=== PATIENT | female | born 1995 | race Caucasian/White ===

== ENCOUNTER 2016-12-21 15:45 | Inpatient (IN) | payer MEDICAID ==
[~2016-12-21] VITALS: Ht 160 cm; Wt 69.4 kg
[2016-12-21] MEDS ORDERED: BUTORPHANOL TARTRATE 2 MG/ML VIAL IV PRN (18:45)
[2016-12-21] MEDS ORDERED: METHYLERGONOVINE MALEATE 0.2 MG/ML IM PRN (18:45)
[2016-12-21] MEDS ORDERED: LIDOCAINE HCL 1% 20ML VIAL (Pyxis) INJ INFIL SCH (18:45)
[2016-12-21] MEDS ORDERED: NALOXONE HCL 0.4 MG/ML 1ML VIAL IM PRN (18:45)
[2016-12-21] MEDS: LACTATED RINGERS 1,000 ML IV SCH ×2 (18:59→20:24)
[2016-12-21 19:13] LABS: BASOPHILS % 0.3 % (0.0-2.0); EOSINOPHILS % 0.3 % (0.0-5.0); HEMATOCRIT. 29.8 % (36.0-48.0); HEMOGLOBIN. 9.8 g/dL (12.0-16.0); LYMPHOCYTES % 17.2 % (20.0-50.0); MEAN CORPUSCULAR VOLUME 72.8 fL (81.0-99.0); MONOCYTES % 4.5 % (2.0-8.0); NEUTROPHILS % 77.7 % (40.0-76.0); PLATELET 166 x1000/uL (130-400); RED CELL DISTRIBUTION WIDTH 18.2 % (11.6-14.6)
[2016-12-21 19:15] LABS: CLARITY URINE CLOUDY (CLEAR); COLOR URINE YELLOW (YELLOW); GLUCOSE URINE NEGATIVE (NEGATIVE); KETONES URINE NEGATIVE (NEGATIVE); LEUKOCYTE ESTERASE URINE 2+ (NEGATIVE); NITRITE URINE NEGATIVE (NEGATIVE); OCCULT BLOOD URINE 2+ (NEGATIVE); PH URINE 6.5 (4.5-8.0); PROTEIN URINE NEGATIVE (NEGATIVE); SPECIFIC GRAVITY URINE 1.023 (1.005-1.030)
[2016-12-21 19:21] LABS: INR 0.9; PARTIAL THROMBOPLASTIN TIME 24.6 sec (23.4-31.0); PROTHROMBIN TIME 9.6 sec (9.4-11.6)
[2016-12-21 19:25] LABS: *AMPHETAMINES SCREEN URINE NEGATIVE (NEGATIVE); *BARBITURATES SCREEN URINE NEGATIVE (NEGATIVE); *BENZODIAZEPINES SCREEN URINE NEGATIVE (NEGATIVE); *COCAINE SCREEN URINE NEGATIVE (NEGATIVE); CANNABINOID URINE SCREEN NEGATIVE (NEGATIVE); METHADONE URINE SCREEN NEGATIVE (NEGATIVE); OPIATES URINE SCREEN NEGATIVE (NEGATIVE); PHENCYCLIDINE URINE SCREEN NEGATIVE (NEGATIVE)
[2016-12-21] MEDS ORDERED: PENICILLIN G POTASSIUM 5 MMU in DEXT 5% WATER 100 ML IV SCH (19:30)
[2016-12-21] MEDS ORDERED: FENTANYL CITRATE/PF 50MCG/ML 2ML VIAL ONE (19:47)
[2016-12-21] MEDS ORDERED: BUPIVACAINE HCL/NS/PF EPIDURAL 100 ML EP ONE (19:49)
[2016-12-21] MEDS ORDERED: BUPIVACAINE HCL/PF 0.25% (2.5MG/ML) 10ML ONE (19:49)
[2016-12-21 19:55] LABS: HEPATITIS B SURFACE ANTIGEN NEGATIVE; RUBELLA IGG 125.1 IU/mL (4.99-10)
[2016-12-21] MEDS ORDERED: DIPHENHYDRAMINE 50MG/ML VIAL IM PRN (20:30)
[2016-12-21] MEDS ORDERED: BUPIVACAINE HCL/NS/PF EPIDURAL 100 ML EP SCH (20:30)
[2016-12-21] MEDS ORDERED: ONDANSETRON HCL 4MG/2ML VIAL IV PRN (20:30)
[2016-12-21] MEDS: PENICILLIN G POTASSIUM 2.5 MMU in DEXTROSE 5% WATER 50 ML IV SCH (23:15)
[2016-12-22] MEDS: LACTATED RINGERS 1,000 ML IV SCH (00:58)
[2016-12-22] MEDS: PENICILLIN G POTASSIUM 2.5 MMU in DEXTROSE 5% WATER 50 ML IV SCH ×2 (03:07→07:48)
[2016-12-22] MEDS ORDERED: FENTANYL CITRATE/PF 50MCG/ML 2ML VIAL ONE (04:05)
[2016-12-22] MEDS ORDERED: BUPIVACAINE HCL/NS/PF EPIDURAL 100 ML EP ONE (04:06)
[2016-12-22] MEDS: DEXT 5%/LR + PITOCIN 20UNITS/L 1,000 ML IV SCH ×2 (08:15→09:16)
[2016-12-22] MEDS ORDERED: DEXT 5%/LR + PITOCIN 20UNITS/L 1,000 ML IV SCH (08:32)
[2016-12-22] MEDS ORDERED: LANOLIN OINT 0.25 GM TUBE TOP PRN (08:45)
[2016-12-22] MEDS ORDERED: IBUPROFEN 400MG TABLET PO PRN (08:45)
[2016-12-22] MEDS ORDERED: RHO(D) IMMUNE GLOBULIN 300 MCG/SYR IM PRN (08:45)
[2016-12-22] MEDS ORDERED: METHYLERGONOVINE MALEATE 0.2 MG/ML IM PRN (08:45)
[2016-12-22] MEDS ORDERED: PRENATAL VIT/FE FUMARATE/FA TABLET PO SCH (09:00)
[2016-12-22 10:10] VITALS: BP 115/73
[2016-12-22 10:30] VITALS: BP 121/78
[2016-12-22 11:17] VITALS: BP 101/63
[2016-12-22 15:56] VITALS: BP 110/55
[2016-12-22] MEDS: IBUPROFEN 800MG TABLET PO PRN (18:46)
[2016-12-22 19:30] VITALS: BP 108/72
[2016-12-23] VITALS: BP 105/60
[2016-12-23 04:00] VITALS: BP 100/71
[2016-12-23 06:59] LABS: BASOPHILS % 0.1 % (0.0-2.0); EOSINOPHILS % 0.3 % (0.0-5.0); HEMATOCRIT. 23.7 % (36.0-48.0); HEMOGLOBIN. 7.6 g/dL (12.0-16.0); LYMPHOCYTES % 15.4 % (20.0-50.0); MEAN CORPUSCULAR HEMOGLOBIN 23.9 pg (28.0-32.0); MEAN CORPUSCULAR VOLUME 74.3 fL (81.0-99.0); MEAN PLATELET VOLUME 8.4 fl (7.4-10.4); MONOCYTES % 4.6 % (2.0-8.0); NEUTROPHILS % 79.6 % (40.0-76.0); PLATELET 154 x1000/uL (130-400); RED BLOOD CELL COUNT 3.19 mill/uL (4.2-5.4); RED CELL DISTRIBUTION WIDTH 18.8 % (11.6-14.6)
[2016-12-23 08:15] VITALS: BP 104/72
[2016-12-23 15:53] VITALS: BP 109/70
[2016-12-23] MEDS: IBUPROFEN 800MG TABLET PO PRN (23:17)
[2016-12-24 00:02] VITALS: BP 101/71
[2016-12-24 06:59] LABS: BASOPHILS % 0.3 % (0.0-2.0); EOSINOPHILS % 0.8 % (0.0-5.0); HEMATOCRIT. 21.2 % (36.0-48.0); LYMPHOCYTES % 20.5 % (20.0-50.0); MEAN CORPUSCULAR HEMOGLOBIN 23.9 pg (28.0-32.0); MEAN CORPUSCULAR VOLUME 74.6 fL (81.0-99.0); MEAN PLATELET VOLUME 8.5 fl (7.4-10.4); MONOCYTES % 4.6 % (2.0-8.0); NEUTROPHILS % 73.8 % (40.0-76.0); PLATELET 146 x1000/uL (130-400); RED BLOOD CELL COUNT 2.84 mill/uL (4.2-5.4); RED CELL DISTRIBUTION WIDTH 18.3 % (11.6-14.6)
[2016-12-24 07:11] LABS: HEMOGLOBIN. 6.8 g/dL (12.0-16.0)
[2016-12-24 07:30] VITALS: BP 97/70
== END 2016-12-24 10:40 | disposition home or self-care (01) | DRG 560 ==
LOC: OBSVTOIN 15:45 → L&D 15:45 → 7EST PP/OB 12-22 10:30
PROVIDERS: ADMIT Obstetrics & Gynecology; ATTEND Obstetrics & Gynecology
PROC: 10E0XZZ Delivery of Products of Conception, External Approach (ICD-10-PCS; 2016-12-22)
PROC: 3E0S3CZ (ICD-10-PCS; 2016-12-22)
PROC: 00HU33Z Insertion of Infusion Device into Spinal Canal, Percutaneous Approach (ICD-10-PCS; 2016-12-22)
PROC: 0W8NXZZ Division of Female Perineum, External Approach (ICD-10-PCS; principal; 2016-12-22 15:55)
DX: O99.824 Streptococcus B carrier state complicating childbirth (principal); D64.9 Anemia, unspecified; Z37.0 Single live birth; O99.02 Anemia complicating childbirth; Z3A.39 39 weeks gestation of pregnancy; O70.9 Perineal laceration during delivery, unspecified; O77.0 Labor and delivery complicated by meconium in amniotic fluid
CPT/HCPCS: 36415; 80305; 81001; 85025; 85610; 85730; 86592; 86703; 86762; 86850; 86900; 87340; J0595; J2540; J2590; J3010; J3490; J7060; J7120; A4315

== ENCOUNTER 2018-05-31 23:38 | Inpatient (IN) | payer MEDICAID ==
[~2018-05-31] VITALS: Ht 167.6 cm; Wt 78.0 kg
[2018-06-01] MEDS ORDERED: DEXT 5%/LR + PITOCIN 20UNITS/L 1,000 ML IV SCH ×2 (00:13→01:57)
[2018-06-01] MEDS ORDERED: LACTATED RINGERS 1,000 ML IV SCH (00:13)
[2018-06-01] MEDS ORDERED: LIDOCAINE HCL 1% 20ML VIAL (Pyxis) INJ INFIL SCH (00:15)
[2018-06-01] MEDS ORDERED: NALOXONE HCL 0.4 MG/ML 1ML VIAL IM PRN (00:15)
[2018-06-01] MEDS ORDERED: METHYLERGONOVINE MALEATE 0.2 MG/ML IM PRN (00:15)
[2018-06-01] MEDS ORDERED: CARBOPROST TROMETHAMINE 250 MCG/ML AMPUL IM PRN (00:15)
[2018-06-01] MEDS ORDERED: BUTORPHANOL TARTRATE 2 MG/ML VIAL IV PRN (00:15)
[2018-06-01] MEDS ORDERED: PENICILLIN G POTASSIUM 5 MMU in DEXT 5% WATER 100 ML IV SCH (00:30)
[2018-06-01 01:28] LABS: CLARITY URINE CLOUDY (CLEAR); COLOR URINE YELLOW (YELLOW); EOSINOPHILS % 0.6 % (0.0-5.0); HEMATOCRIT. 31.7 % (36.0-48.0); HEMOGLOBIN. 10.3 g/dL (12.0-16.0); KETONES URINE NEGATIVE (NEGATIVE); LEUKOCYTE ESTERASE URINE 2+ (NEGATIVE); LYMPHOCYTES % 21.9 % (20.0-50.0); MEAN CORPUSCULAR HEMOGLOBIN 23.9 pg (28.0-32.0); MEAN CORPUSCULAR VOLUME 73.2 fL (81.0-99.0); MEAN PLATELET VOLUME 8.7 fl (7.4-10.4); MONOCYTES % 6.8 % (2.0-8.0); NEUTROPHILS % 69.7 % (40.0-76.0); NITRITE URINE NEGATIVE (NEGATIVE); OCCULT BLOOD URINE 1+ (NEGATIVE); PLATELET 217 x1000/uL (130-400); PROTEIN URINE NEGATIVE (NEGATIVE); RED BLOOD CELL COUNT 4.32 mill/uL (4.2-5.4); RED CELL DISTRIBUTION WIDTH 18.4 % (11.6-14.6); SPECIFIC GRAVITY URINE 1.018 (1.005-1.030)
[2018-06-01 01:41] LABS: *AMPHETAMINES SCREEN URINE NEGATIVE (NEGATIVE); *BARBITURATES SCREEN URINE NEGATIVE (NEGATIVE); *BENZODIAZEPINES SCREEN URINE NEGATIVE (NEGATIVE); *COCAINE SCREEN URINE NEGATIVE (NEGATIVE); METHADONE URINE SCREEN NEGATIVE (NEGATIVE)
[2018-06-01 01:42] LABS: CANNABINOID URINE SCREEN NEGATIVE (NEGATIVE); OPIATES URINE SCREEN NEGATIVE (NEGATIVE); PHENCYCLIDINE URINE SCREEN NEGATIVE (NEGATIVE)
[2018-06-01 01:43] LABS: INR 0.9; PARTIAL THROMBOPLASTIN TIME 23.3 sec (23.4-31.0); PROTHROMBIN TIME 9.3 sec (9.1-11.1)
[2018-06-01] MEDS ORDERED: LANOLIN OINT 0.25 GM TUBE TOP PRN (02:00)
[2018-06-01] MEDS ORDERED: IBUPROFEN 400MG TABLET PO PRN (02:00)
[2018-06-01] MEDS ORDERED: RHO(D) IMMUNE GLOBULIN 300 MCG/SYR IM PRN (02:00)
[2018-06-01] MEDS ORDERED: DIPHENHYDRAMINE 25MG CAPSULE PO PRN (02:00)
[2018-06-01 02:01] LABS: HEPATITIS B SURFACE ANTIGEN NEGATIVE
[2018-06-01] MEDS ORDERED: PENICILLIN G POTASSIUM 2.5 MMU in DEXTROSE 5% WATER 50 ML IV SCH (05:00)
[2018-06-01 05:21] VITALS: BP 100/50
[2018-06-01 09:00] VITALS: BP 103/64
[2018-06-01] MEDS: PRENATAL VIT/FE FUMARATE/FA TABLET PO SCH (09:00)
[2018-06-01 16:20] VITALS: BP 97/65
[2018-06-01 22:00] VITALS: BP 104/62
[2018-06-02] MEDS: IBUPROFEN 800MG TABLET PO PRN ×2 (03:04→19:26)
[2018-06-02 04:56] VITALS: BP 102/60
[2018-06-02 06:27] LABS: BASOPHILS % 0.4 % (0.0-2.0); EOSINOPHILS % 0.5 % (0.0-5.0); HEMATOCRIT. 23.9 % (36.0-48.0); HEMOGLOBIN. 7.8 g/dL (12.0-16.0); MEAN CORPUSCULAR VOLUME 73.3 fL (81.0-99.0); MEAN PLATELET VOLUME 8.4 fl (7.4-10.4); MONOCYTES % 5.1 % (2.0-8.0); PLATELET 161 x1000/uL (130-400); RED BLOOD CELL COUNT 3.26 mill/uL (4.2-5.4)
[2018-06-02] MEDS: PRENATAL VIT/FE FUMARATE/FA TABLET PO SCH (08:46)
[2018-06-02 13:00] VITALS: BP 108/66
[2018-06-02 19:30] VITALS: BP 111/70
[2018-06-02 23:11] VITALS: BP 105/63
[2018-06-03 08:10] VITALS: BP 92/57
[2018-06-03] MEDS: PRENATAL VIT/FE FUMARATE/FA TABLET PO SCH (08:31)
== END 2018-06-03 11:30 | disposition home or self-care (01) | DRG 560 ==
LOC: OBSVTOIN 23:38 → 8 EST LDRP 23:38 → 8EST 06-01 03:00
PROVIDERS: ADMIT Obstetrics & Gynecology; ATTEND Obstetrics & Gynecology
PROC: 10E0XZZ Delivery of Products of Conception, External Approach (ICD-10-PCS; principal; 2018-06-01)
DX: O48.0 Post-term pregnancy (principal); D64.9 Anemia, unspecified; O99.52 Diseases of the respiratory system complicating childbirth; O99.03 Anemia complicating the puerperium; J45.909 Unspecified asthma, uncomplicated; Z37.0 Single live birth; Z3A.40 40 weeks gestation of pregnancy
CPT/HCPCS: 36415; 80305; 86592; 86703; 86762; 86850; 86900; 87340; 99281; G0378; J0595; J2310; J2540; J2590; J3490; J7060; J7120